=== PATIENT | female | born 1990 | race Caucasian/White ===

== ENCOUNTER 2017-03-20 03:28 | Emergency (ER) | payer SELFPAY ==
[~2017-03-20] VITALS: Ht 162.6 cm; Wt 116.0 kg
[~2017-03-20 03:28] MED LIST: BLACK COHOSH40 MG PO; DENIES CURRENT MEDS; GUMMI BEAR PO; ONDANSETRON4 MG PO; PHENERGAN SUPP RE; PRENATAL1 TA1 PO; PRENATAL1 TAB OR; ZOFRAN ODT4 MG PO; ZOFRAN4 MG OR
[2017-03-20] MEDS ORDERED: AMOXICILLIN500 MG PO (04:05)
[2017-03-20] MEDS ORDERED: LORTAB 10-325 M1 TAB PO (04:05)
[2017-03-20 04:12] VITALS: BP 135/97
== END 2017-03-20 04:14 | disposition home or self-care (01) | DRG 159 ==
LOC: ED 03:28
DX: K04.7 Periapical abscess without sinus (principal)

== ENCOUNTER 2017-12-01 11:03 | Emergency (ER) | payer OTHER ==
[~2017-12-01] VITALS: Ht 162.6 cm; Wt 110.0 kg
[~2017-12-01 11:03] MED LIST changes: +AMOXICILLIN500 MG PO; +LORTAB 10-325 M1 TAB PO
[2017-12-01] MEDS ORDERED: PRENATA3 PO (11:12)
[2017-12-01 11:14] VITALS: BP 151/98
[2017-12-01 11:54] LABS: URINE BILIRUBIN - DIPSTICK NEGATIVE (NEGATIVE); URINE BLOOD DIPSTICK NEGATIVE (NEGATIVE); URINE CLARITY CLEAR; URINE COLOR YELLOW; URINE GLUCOSE - DIPSTICK NEGATIVE (NEGATIVE); URINE KETONE NEGATIVE (NEGATIVE); URINE LEUK ESTERASE NEGATIVE (NEGATIVE); URINE NITRITE - DIPSTICK NEGATIVE (Negative); URINE PROTEIN - DIPSTICK NEGATIVE (NEG-TRACE); URINE SPECIFIC GRAVITY 1.025; URINE UROBILINOGEN - DIPSTICK 0.2 E.U./dL (0.2)
== END 2017-12-01 12:17 | disposition left against medical advice (07) | DRG 392 ==
LOC: ED 11:03
PROVIDERS: Family Medicine
DX: R10.30 Lower abdominal pain, unspecified (principal); M54.5 Low back pain; F41.9 Anxiety disorder, unspecified; Z91.19 Patient's noncompliance with other medical treatment and regimen

== ENCOUNTER 2018-02-16 17:50 | Emergency (ER) | payer OTHER ==
[~2018-02-16] VITALS: Ht 162.6 cm; Wt 112.7 kg
[~2018-02-16 17:50] MED LIST changes: +PRENATA3 PO
[2018-02-16 18:33] LABS: HEMATOCRIT 40.2 % (37.0-47.0); HEMOGLOBIN 13.7 g/dl (12.0-16.0); IMMATURE GRANULOCYTES 0.3 % (0.0-1.0); MEAN CORPUSCULAR HGB 30.9 pG CALC (26.0-32.0); MEAN CORPUSCULAR HGB CONC 34.1 g/L CALC (32.0-36.0); NEUT# 7.93 thou/uL (2.00-7.15); RED BLOOD COUNT 4.43 mill/uL (4.20-5.60); RED CELL DISTRI WIDTH 13.1 % (11.5-15.5)
[2018-02-16 18:34] LABS: URINE BILIRUBIN - DIPSTICK NEGATIVE (NEGATIVE); URINE BLOOD DIPSTICK NEGATIVE (NEGATIVE); URINE COLOR YELLOW; URINE GLUCOSE - DIPSTICK NEGATIVE (NEGATIVE); URINE KETONE 15 mg/dL (NEGATIVE); URINE LEUK ESTERASE NEGATIVE (NEGATIVE); URINE NITRITE - DIPSTICK NEGATIVE (Negative); URINE PROTEIN - DIPSTICK 30 mg/dL (NEG-TRACE); URINE SPECIFIC GRAVITY >=1.030; URINE UROBILINOGEN - DIPSTICK 0.2 E.U./dL (0.2)
[2018-02-16 18:39] LABS: MEAN CELL VOLUME 90.7 fL CALC (80.0-100.0); URINE CLARITY CLEAR
[2018-02-16 18:40] LABS: URINE RBC 0-2 RBC/hpf (0-5); URINE SQUAMOUS EPITHELIAL CELL FEW EPI/hpf (0-FEW); URINE WBC 0-2 WBC/hpf (0-5)
[2018-02-16 18:48] LABS: INFLUENZA A NONE DETECTED (NONE DETECT); INFLUENZA B NONE DETECTED (NONE DETECT)
[2018-02-16 18:51] LABS: ANION GAP 15 (6-22 (CALC)); BILIRUBIN, TOTAL 0.3 mg/dL (0.0-1.4); BUN 5 mg/dL (7-17); BUN/CREATININE RATIO 12 (12-20 (CALC)); CARBON DIOXIDE 21 mmol/l (22-30); CHLORIDE 105 mmol/l (95-108); CREATININE 0.4 mg/dL (0.5-1.0); GFR > 60 ML/MIN (>=60 (CALC)); GFR FOR AFR.AMER. > 60 ML/MIN (>=60 (CALC)); POTASSIUM 3.7 mmol/l (3.5-5.1); SGOT/AST 14 u/l (14-36); SGPT/ALT 25 u/l (9-52); SODIUM 137 mmol/l (137-146); TOTAL PROTEIN 6.7 g/dL (6.3-8.2)
[2018-02-16 19:01] LABS: ALBUMIN 3.6 g/dL (3.2-5.0); ALKALINE PHOSPHATASE 71 u/l (38-126)
[2018-02-16 19:34] VITALS: BP 124/62
[2018-02-16 19:35] LABS: BETA-HCG, QUANT(RESULT NUMBER) 33336 mIU/mL
== END 2018-02-16 19:34 | disposition home or self-care (01) ==
LOC: ED 17:50
PROVIDERS: Emergency Medicine
DX: O26.892 Other specified pregnancy related conditions, second trimester (principal); R51 Headache; O99.342 Other mental disorders complicating pregnancy, second trimester; F41.9 Anxiety disorder, unspecified; Z3A.17 17 weeks gestation of pregnancy

== ENCOUNTER 2020-03-13 23:10 | Emergency (ER) | payer MEDICAID ==
[~2020-03-13] VITALS: Ht 162.6 cm; Wt 122.7 kg
[2020-03-13 23:58] LABS: HEMOGLOBIN 12.1 g/dl (12.0-16.0); IMMATURE GRANULOCYTES 0.3 % (0.0-5.0); MEAN CORPUSCULAR HGB 22.8 pG CALC (26.0-32.0); MEAN CORPUSCULAR HGB CONC 29.5 g/dL CAL (32.0-36.0); NEUT# 9.44 thou/uL (2.00-7.15); RED BLOOD COUNT 5.31 mill/uL (4.20-5.60); RED CELL DISTRI WIDTH 17.2 % (11.5-15.5)
[2020-03-14 00:05] LABS: URINE BILIRUBIN - DIPSTICK NEGATIVE (NEGATIVE); URINE BLOOD DIPSTICK MODERATE (NEGATIVE); URINE COLOR YELLOW; URINE GLUCOSE - DIPSTICK NEGATIVE (NEGATIVE); URINE KETONE NEGATIVE (NEGATIVE); URINE NITRITE - DIPSTICK NEGATIVE (Negative); URINE PROTEIN - DIPSTICK NEGATIVE (NEG-TRACE); URINE SPECIFIC GRAVITY >=1.030; URINE UROBILINOGEN - DIPSTICK 0.2 E.U./dL (0.2)
[2020-03-14 00:06] LABS: URINE LEUK ESTERASE NEGATIVE (NEGATIVE)
[2020-03-14 00:07] LABS: URINE EPITHELIAL CELLS FEW EPI/hpf (0-FEW); URINE RBC >100 RBC/hpf (0-5)
[2020-03-14 00:08] LABS: URINE BACTERIA MODERATE hpf
[2020-03-14 00:10] LABS: MEAN CELL VOLUME 77.2 fL CALC (80.0-100.0)
[2020-03-14 00:19] LABS: ALKALINE PHOSPHATASE 96 u/l (38-126); BILIRUBIN, TOTAL 0.3 mg/dL (0.0-1.4); BUN 10 mg/dL (7-17); BUN/CREATININE RATIO 16 (12-20 (CALC)); CHLORIDE 101 mmol/l (95-108); CREATININE 0.7 mg/dL (0.5-1.0); ETHYL ALCOHOL 0 mg/dl (0-30); GFR > 60 ML/MIN (>=60 (CALC)); GFR FOR AFR.AMER. > 60 ML/MIN (>=60 (CALC)); LIPASE 45 u/l (23-300); POTASSIUM 3.7 mmol/l (3.5-5.1); SGOT/AST 22 u/l (14-36); SODIUM 139 mmol/l (137-146); TOTAL PROTEIN 7.6 g/dL (6.3-8.2)
[2020-03-14 00:20] LABS: ACT PARTIAL THROMBO TIME 23.3 SECONDS (20.0-32.5); INTERNATIONAL NORMALIZED RATIO 0.9 RATIO (0.7-1.3); PROTHROMBIN TIME 9.4 SECONDS (9.0-12.5)
[2020-03-14 00:44] LABS: ALBUMIN 4.6 g/dL (3.2-5.0); ANION GAP 13 (6-22 (CALC)); CARBON DIOXIDE 29 mmol/l (22-30)
[2020-03-14 00:55] LABS: D-DIMER 0.49 mg/L (0.19-0.60)
[2020-03-14] MEDS ORDERED: MOTRIN800 MG PO (01:09)
[2020-03-14] MEDS ORDERED: FLEXERIL PO (01:09)
[2020-03-14 01:15] VITALS: BP 121/69
== END 2020-03-14 01:22 | disposition home or self-care (01) | DRG 313 ==
LOC: ED 23:10
DX: R07.89 Other chest pain (principal); F41.9 Anxiety disorder, unspecified

== ENCOUNTER 2022-02-07 22:11 | Emergency (ER) | payer MEDICAID ==
[~2022-02-07] VITALS: Ht 162.6 cm; Wt 150.0 kg
[~2022-02-07 22:11] MED LIST changes: +FLEXERIL PO; +MOTRIN800 MG PO
[2022-02-07] MEDS ORDERED: GENTAMICIN SULF5 ML OS (22:54)
[2022-02-07 22:57] VITALS: BP 145/105
== END 2022-02-07 23:10 | disposition home or self-care (01) ==
LOC: ED 22:11
DX: S05.02XA Injury of conjunctiva and corneal abrasion without foreign body, left eye, initial encounter (principal); F41.9 Anxiety disorder, unspecified; X58.XXXA Exposure to other specified factors, initial encounter